=== PATIENT | male | born 1995 | race African-American/Black ===

== ENCOUNTER 2017-06-13 12:43 | Emergency (ER) | payer OTHER ==
[2017-06-13 12:59] VITALS: BP 139/92
== END 2017-06-13 13:50 | disposition other institution (70) ==
LOC: ED 12:43
DX: Z02.89 Encounter for other administrative examinations (principal); S21.232A Puncture wound without foreign body of left back wall of thorax without penetration into thoracic cavity, initial encounter; S80.212A Abrasion, left knee, initial encounter; S60.512A Abrasion of left hand, initial encounter; R03.0 Elevated blood-pressure reading, without diagnosis of hypertension; F15.90 Other stimulant use, unspecified, uncomplicated; W22.8XXA Striking against or struck by other objects, initial encounter; Y93.89 Activity, other specified; Y99.8 Other external cause status; Y92.89 Other specified places as the place of occurrence of the external cause